=== PATIENT | female | born 1990 | race Caucasian/White ===

== ENCOUNTER → 2016-08-06 | Outpatient (CLI) | payer OTHER | END | disposition home or self-care (01) | LOC: RAD.S 13:55 | DX: M25.462 Effusion, left knee (principal) ==

== ENCOUNTER 2016-10-14 08:23 | Emergency (ER) | payer OTHER ==
--- NOTE | 2016-10-22 18:06 | ER ---
ADMIT: 10/14/2016 RM/LOC: ER [facility] MR#: [id number] [address] [id number] MARIA DOLORES FLOYD [address] [place] [id number] Emergency Room Report SEX: F AGE: 26 : 1990 DATE: 10/14/2016 ADDENDUM: A 26-year-old female, comes in with symptoms of feels like she was passing out when she was lying down in her bathroom floor. She states that she has had some intermittent nausea for the past couple of days and just feels like she is overall weak. She denies any seizure activity, and her was there when this occurred. She has no injuries. Her physical exam was unremarkable. CBC is normal. Chemistries are normal other than a potassium of 3.1. An EKG showed no acute findings, sinus rhythm at a rate of 81. Orthostatics were also fine. The patient states she was feeling better while in the ER. I discussed the case with Dr. Rouse, her primary care physician, and we replaced potassium here, however, start using a multivitamin, and she was given a prescription for Zofran to be used as needed for any nausea. She is to call the office to arrange for followup and return to the ER for any concerning symptoms. Demetrius Wallace MD/ brennan JOB #: [id number] CC: Demetrius Wallace MD, Attending Physician Leah Rouse MD, Family Physician
== END 2016-10-14 10:20 | disposition home or self-care (01) ==
LOC: ER 08:23
DX: R55 Syncope and collapse (principal); E87.6 Hypokalemia; R11.0 Nausea; Z88.0 Allergy status to penicillin; Z88.7 Allergy status to serum and vaccine; Z91.010 Allergy to peanuts; Z79.899 Other long term (current) drug therapy